=== PATIENT | female | born 1980 | race Two or more races ===

== ENCOUNTER 2020-06-16 16:28 | Emergency (ER) | payer MEDICAID, OTHER ==
[~2020-06-16] VITALS: Ht 160 cm; Wt 65.8 kg
[2020-06-16 16:29] VITALS: BP 134/82
== END 2020-06-16 18:59 | disposition home or self-care (01) ==
LOC: ER 16:29
DX: U07.1 COVID-19 (principal); R07.89 Other chest pain
CPT/HCPCS: 36415; 71045; 87426